=== PATIENT | female | born 1955 | race Caucasian/White ===

== ENCOUNTER 2020-12-02 10:36 | Emergency (ER) | payer OTHER, SELFPAY ==
[2020-12-02 10:40] VITALS: BP 123/83; PULSE 74; RESP 18; TEMP 36.5; O2SAT 98; BMI 23.7
--- NOTE | 2020-12-02 10:42 | XR_ITS ---
WS: [id number] Right foot, 3 views, 12/02/2020 Clinical Data: pain Comparison: None. Findings: No fractures or dislocations are seen. No bone destruction or erosion is noted. The soft tissues are normal. There is a small bunion at the head of the right first metatarsal. No radiopaque foreign body is seen . XR/XR foot RT min 3V* [id number] Impression: 1. Negative for radiopaque foreign body. 2. Small bunion at head of right first metatarsal.
--- NOTE | 2020-12-02 10:57 | W.ED.EXTPRO ---
HPI - Extremity Problem General: Chief complaint: Extremity Injury, Lower Stated complaint: RIGHT FOOT PAIN Time Seen by Provider: 12/02/20 10:41 History of Present Illness: HPI Narrative: 65-year-old female presents emergency room with complaint of swelling redness in her right foot. 1 week ago she stepped on some glass she was seen initially. She not started on any antibiotics she is unsure when her last tetanus shot was MD Complaint: extremity pain Onset (ago): day(s) Pain Consistency: constant Location: right Quality: aching Radiation: none Relieving factors: nothing Exacerbating factors: nothing Associated symptoms: Reports arthralgias; Deny chest pain, fever(s), myalgias, rash, short of breath or other Context: other (Recent injury) Review of Systems Const: Denies: fever(s) Card: Denies: chest pain Resp: Denies: dyspnea, productive cough or non-productive cough GI: Denies: abdominal pain, nausea, vomiting, hematemesis, diarrhea or constipation : Denies: flank pain, difficulty voiding, dysuria, urinary frequency or urinary urgency Skin/Breast: Denies: rash Physical Exam Const: COMMON NORMALS: no acute distress GENERAL APPEARANCE: cooperative and comfortable ORIENTATION/CONSCIOUSNESS: Yes awake, Yes oriented to person, Yes oriented to place and Yes oriented to time HENMT: COMMON NORMALS: normocephalic, atraumatic, hearing grossly normal bilaterally and external ears normal HEAD & SCALP: normocephalic and atraumatic EXTERNAL EAR: Yes external ears normal Extremity: NARRATIVE EXTREMITY EXAM: [place] left foot neurovascular intact there is a small superficial abscess underlying the area between the first and second toes on the sole of the foot proximally across the dorsum of foot there is some lymphangitic spread mild tenderness dorsalis pedis posterior tibialis normal Neuro: SENSORIUM/ORIENTATION: Yes oriented to person, Yes oriented to place and Yes oriented to time Course Vital Signs: Vital signs: Vital Signs Temperature 97.7 F 12/02/20 11:02 Pulse Rate 74 12/02/20 10:40 Respiratory Rate 18 12/02/20 11:02 Blood Pressure 123/83 12/02/20 10:40 Pulse Oximetry 98 12/02/20 11:02 MDM - Extremity (Nontraumatic) MDM Narrative: Medical decision making narrative: Antibiotics update tetanus as she cannot recall when she had it was not get updated at her first encounter. Follow-up with her primary care doctor tomorrow Discharge Plan Discharge Patient Disposition: Home Clinical Impression: Cellulitis and abscess of foot, Lymphangitis Condition: Stable Prescriptions: New Augmentin 875-125 mg tablet 1 tab PO BID Qty: 14 RF: 0 Discharge Orders: Discharge ED (Routine); Ordered 12/02/20 Ordered By: Clarence Morse Discharge Diet: Usual diet Discharge Activity: Increase activity as tolerated Patient Instructions: Opioid Safety Activity Restrictions/Additional Instructions: Case management will make an appointment for you to follow-up in the next 3 to 4 days. You do need to follow-up with someone early next week whether it your primary care doctor near your home town or with someone in this area. If things worsen or you develop fever return to the emergency room Coding Level of Care Code ED [employer] for Angeline Carter
--- NOTE | 2020-12-02 10:59 | PC.NURSE ---
XR done at bedside
[2020-12-02 11:02] VITALS: RESP 18; TEMP 36.5; O2SAT 98
[2020-12-02] MEDS: tetanus-dipt-pertussis 0.5 mL SDV IM (11:10)
== END 2020-12-02 11:12 | disposition home or self-care (01) ==
LOC: ER 14:11
PROVIDERS: Emergency Provider Family Medicine
DX: L03.115 Cellulitis of right lower limb (principal); L02.611 Cutaneous abscess of right foot; I89.1 Lymphangitis; Z23 Encounter for immunization
CPT/HCPCS: 73630; 90471; 90715; 99283